=== PATIENT | female | born 1995 | race Caucasian/White ===

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

== ENCOUNTER 2019-11-14 19:26 | Emergency (ER) | payer OTHER ==
--- NOTE | 2019-11-14 19:34 | PDOC ---
History of Present Illness - General Chief Complaint: Pain Stated Complaint: ABDOMINAL PAIN Time Seen by Provider: 11/14/19 19:31 - History of Present Illness Initial Comments: 11/14/19 20:28 This otherwise healthy 24-year-old woman presents with 3-day history of right- sided abdominal pain. No nausea/vomiting/diarrhea noted. No history of fever or chills. Patient is not aware of pain being worse after eating. Stools have been normal (last BM just prior to presentation). Pain is somewhat worse with movement. Appetite is normal and patient last ate at 3 PM today. LMP 10/19 (patient states that she has been having menstrual periods every 3-4 weeks for the last several cycles; was due 11/11) no history of dysuria, urinary frequency/urgency or hematuria No daily medications Daily marijuana user (smoking)/no daily alcohol or other recreational drug use No known allergies Past History - Medical History Allergies/Adverse Reactions: Allergies Allergy/AdvReac Type Severity Reaction Status Date / Time No Known Allergies Allergy Verified 11/14/19 19:27 Home Medications: Ambulatory Orders Nitrofurantoin Macrocrystal [Macrodantin] 100 mg PO BID #10 capsule 11/14/19 Asthma: Yes COPD: No - Reproductive History Is Patient Now?: No - Psycho-Social/Smoking History Smoking History: Never smoked Have you smoked in the past 12 months: No Information on smoking cessation initiated: No - Substance Abuse Hx (Audit-C & DAST Scrn) How often the patient has a drink containing alcohol: Never Score: In Men: 4 or > Positive; In Women: 3 or > Positive: 0 Screen Result (Pos requires Nsg. Audit-10AR): Negative In the last yr the pt used illegal drug/Rx for NonMed reason: Yes Score: Yes response is considered Positive: 1 Screen Result (Positive result requires Nsg. DAST-10): Positive Review of Systems - Review of Systems Able to Perform ROS?: Yes Comments:: 12 point review of systems is negative except for what is noted in the history of present illness *Physical Exam - Vital Signs Last Vital Signs Temp Pulse Resp BP Pulse Ox 98.8 F 88 18 117/72 100 11/14/19 19:29 11/14/19 19:29 11/14/19 19:29 11/14/19 19:29 11/14/19 19:29 - Physical Exam GENERAL: Young adult female, alert and oriented x3, no acute distress HEAD: Normal with no signs of trauma. EYES: PERRLA, EOMI, sclera anicteric, conjunctiva clear. ENT: Ears normal, nares patent, oropharynx clear without exudates. Moist mucous membranes. NECK: Normal range of motion, supple without lymphadenopathy, JVD, or masses. LUNGS: Breath sounds equal, clear to auscultation bilaterally. No wheezes, and no crackles. HEART:Regular rate and rhythm, normal S1 and S2 without murmur, rub or gallop. ABDOMEN:.normal bowel sounds; moderate right upper quadrant tenderness; mild right flank/right lower quadrant tenderness no guarding or rebound.No masses EXTREMITIES: Normal range of motion, no edema. No clubbing or cyanosis. No erythema, or tenderness. NEUROLOGICAL: Cranial nerves II through XII grossly intact. Normal speech. No focal neurologic deficits MUSCULOSKELETAL: Back non-tender to palpation, no CVA tenderness SKIN: Warm, Dry, normal turgor, no rashes or lesions noted. ED Treatment Course - LABORATORY CBC & Chemistry Diagram: 11/14/19 20:25 11/14/19 20:23 Medical Decision Making - Medical Decision Making As noted above, this 24-year-old woman, otherwise healthy presents with a 3-day history of right sided abdominal pain without associated other symptoms. Exam notable for moderate right upper quadrant tenderness and mild right flank/right lower quadrant tenderness. Since patient was a few days late for her menstrual period and is sexually active, urinalysis and PGU was sent. PGU negative but urinalysis suggestive of UTI (2-5 RBC/10-20 WBCs/few epi/moderate bacteria on microscopic analysis Because patient had significant tenderness in the right upper quadrant, gallbladder ultrasound performed to rule out biliary pathology. (Patient states that she last ate at 3 PM, approximately 5 hours prior to presentation) Ultrasound interpreted by Dr. Rajput of the radiology staff: Gallbladder is contracted. No evidence of gallstones or other biliary pathology. Right kidney appears normal as does the pancreas. CBC and chemistry profile had also been evaluated: No evidence of abnormality seen on either test. Clinical presentation most consistent with UTI; urine sent for culture and sensitivity. Macrodantin 100 mg given now and prescription for Macrobid twice a day for 5 days sent to the patient's pharmacy. Patient strongly recommended to drink plenty of water and to return to the ER if she has any persistent pain, especially if it is located in the right lower quadrant or if she develops fever/vomiting. 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 Referral information for Dr. Felix given to the patient Discharge - Discharge Information Problems reviewed: Yes Clinical Impression/Diagnosis: UTI (urinary tract infection) Qualifiers: Urinary tract infection type: acute cystitis Hematuria presence: without hematuria Qualified Code(s): N30.00 - Acute cystitis without hematuria Abdominal pain Qualifiers: Abdominal location: right upper quadrant Qualified Code(s): R10.11 - Right upper quadrant pain Condition: Stable Disposition: HOME - Additional Discharge Information Prescriptions: Nitrofurantoin Macrocrystal [Macrodantin] 100 mg PO BID #10 capsule - Follow up/Referral Referrals: Linda Felix MD [Staff Physician] - - Patient Discharge Instructions Patient Printed Discharge Instructions: Urinary Tract Infection Additional Instructions: Drink plenty of water Macrodantin 100 mg twice a day for 5 days Return to ER if you have persistent pain or develop fever/vomiting Follow-up with Dr Felix (family practice physician) within the next week to 10 days - Post Discharge Activity
[2019-11-14 19:45] VITALS: BP 117/72; PULSE 88; TEMP 98.8; BMI 26.0
[2019-11-14 19:56] LABS: HCG,QUALITATIVE URINE Negative
[2019-11-14 20:00] LABS: EPITHELIAL CELLS FEW /hpf
[2019-11-14 20:51] LABS: BASO % 0.6 % (0-2.0); EOS % 3.4 % (0-4.5); HEMATOCRIT 39.9 % (32.4-45.2); HEMOGLOBIN 13.3 GM/dl (10.7-15.3); LYMPH % 19.6 % (8-40); MCH 30.2 pg (25.7-33.7); MCHC 33.3 g/dl (32.0-36.0); MEAN CELL VOLUME 90.7 fl (80-96); MEAN PLT VOLUME 7.3 fl (7.5-11.1); MONO % 7.7 % (3.8-10.2); NEUT % 68.7 % (42.8-82.8); PLATELET COUNT 305 K/MM3 (134-434); RDW 12.8 % (11.6-15.6); WHITE BLOOD COUNT 7.5 K/mm3 (4.0-10.8)
[2019-11-14 21:07] LABS: ALBUMIN 4.5 g/dl (3.4-5.0); BILIRUBIN,TOTAL 0.5 mg/dl (0.2-1); CALCIUM 9.7 mg/dl (8.5-10); CREATININE 0.7 mg/dl (0.55-1.3); POTASSIUM 4.1 mmol/L (3.5-5.1); TOT PROT 7.6 g/dl (6.4-8.2)
[2019-11-14] MEDS ORDERED: NITROFURANTOIN MACROCRYSTAL 50 MG CAPSULE (FP) ONE (22:10)
[2019-11-14] MEDS ORDERED: NITROFURANTOIN MACROCRYSTAL 50 MG CAPSULE (FP) PO SCH (22:15)
== END 2019-11-14 22:24 | disposition home or self-care (01) ==
LOC: FER 19:26
DX: R10.11 Right upper quadrant pain (principal); N30.00 Acute cystitis without hematuria
CPT/HCPCS: 36415; 76705-TC; 80053; 81003; 81015; 84703; 85025; 87086; 87186; 99284-25

== ENCOUNTER 2023-03-17 10:27 | Emergency (ER) | payer OTHER ==
[2023-03-17 10:34] VITALS: BP 130/80; PULSE 103; RESP 18; TEMP 98; BMI 25.7
[2023-03-17] MEDS ORDERED: ACETAMINOPHEN 500 MG TABLET (FP) PO ONE (10:36)
[2023-03-17] MEDS ORDERED: ACETAMINOPHEN 500 MG TABLET (FP) ONE (10:58)
[2023-03-17 12:05] LABS: THROAT:GRP A STREP DETECTED (NOTDETECTED)
== END 2023-03-17 12:26 | disposition home or self-care (01) ==
LOC: JER 10:27 → JERFT 10:27
DX: O98.519 Other viral diseases complicating pregnancy, unspecified trimester (principal); J02.0 Streptococcal pharyngitis; Z3A.00 Weeks of gestation of pregnancy not specified; Z20.822 Contact with and (suspected) exposure to COVID-19
CPT/HCPCS: 0241U-QW; 84703; 87651; 99283-25